=== PATIENT | male | born 1965 | race African-American/Black ===

== ENCOUNTER 2019-10-20 12:45 | Inpatient (IN) | payer OTHER ==
--- NOTE | 2019-10-20 13:01 | ED ---
General Adult HPI - General Chief complaint: Seizure Stated complaint: Syncope Time Seen by Provider: 10/20/19 12:52 Source: EMS Mode of arrival: EMS Limitations: no limitations - History of Present Illness Initial comments: Dictation was produced using [employer] dictation software. please excuse any grammatical, word or spelling errors. This patient was cared for during a federal and state declared state of emergency secondary to Covid 19 Chief Complaint: 54-year-old malepast medical history presents with seizure-like activity. History of Present Illness: 54-year-old male with no significant past medical history presents via EMS for seizure. Patient works for [employer]. He was at work for approximate 4 hours went the syncopized and then began showing seizure-like activity. He was postictal for approximate 5 minutes. Patient does not recall any of the events that transpired. States last seen he remembered was working on the floor. Patient has no history of seizure. Denies any medical problems. He's been feeling well otherwise. Currently has no complaints. States that he is nervous because he is in the emergency room. Patient does have 1 or 2 beers sporadically. He has no history of EtOH withdrawal. The ROS documented in this emergency department record has been reviewed and confirmed by me. Those systems with pertinent positive or negative responses have been documented in the HPI. All other systems are other negative and/or noncontributory. PHYSICAL EXAM: General Impression: Alert and oriented x3, not in acute distress HEENT: Normocephalic atraumatic, extra-ocular movements intact, pupils equal and reactive to light bilaterally, mucous membranes moist. Cardiovascular: Heart regular rate and rhythm Chest: Able to complete full sentences, no retractions, no tachypnea Abdomen: abdomen soft, non-tender, non-distended, no organomegaly Musculoskeletal: Pulses present and equal in all extremities, no peripheral edema Motor: no focal deficits noted Neurological: CN II-XII grossly intact, no focal motor or sensory deficits noted Skin: Intact with no visualized rashes Psych: Normal affect and mood ED course: 54-year-old male presents with clinical presentation concerning for new onset seizure. As upon arrival are within acceptable limits. Laboratory evaluation obtained. CBC is unremarkable. Metabolic panel shows sodium 129. He does have any gap acidosis likely secondary to seizure. Magnesium is 1.5. Considering that patient does not have a history of seizure patient be admitted for new onset seizure. At this point is not entirely clear what is causing patient's seizures. Does report drinking alcohol however he describes it's not significant amount. There is however some concern that perhaps his seizure could be from EtOH withdrawal. Patient may also have a his tory of epilepsy that was exacerbated with dehydration and electrolyte derangement. Patient states he's been admitted for hyponatremia in the past. Patient is agreeable for admission. Discussed patient case with neurology Dr. Lee. She reports that it is up to the patient's discretion whether to be admitted at our hospital considering that he is not able to get an EEG or MRI within 48 hours. Patient understands and would prefer to be admitted here as opposed to being transferred to a facility where these advanced studies can be performed in a timely fashion. This patient case with Dr. Aquino was went except patient's care. EKG interpretation: Ventricular rate 90, TX interval 164, QRS 86, QTC 457, normal sinus rhythm. No TX prolongation, no QTC prolongation, no ST or T-wave changes noted. Overall, this EKG is unremarkable - Related Data Home Medications Medication Instructions Recorded Confirmed Omeprazole 20 mg PO DAILY 10/20/19 10/20/19 Allergies Allergy/AdvReac Type Severity Reaction Status Date / Time No Known Allergies Allergy Verified 10/20/19 14:11 Review of Systems ROS Statement: Those systems with pertinent positive or pertinent negative responses have been documented in the HPI. ROS Other: All systems not noted in ROS Statement are negative. Past Medical History Past Medical History: No Reported History History of Any Multi-Drug Resistant Organisms: None Reported Past Surgical History: Hernia Repair Past Psychological History: No Psychological Hx Reported Smoking Status: Current every day smoker Past Alcohol Use History: Occasional Past Drug Use History: Marijuana General Exam Limitations: no limitations Course Vital Signs 10/20/19 10/20/19 12:45 14:16 Temperature 97.7 F Pulse Rate 96 80 Respiratory 18 16 Rate Blood Pressure 156/95 138/67 O2 Sat by Pulse 98 100 Oximetry Medical Decision Making - Lab Data Result diagrams: 10/20/19 12:55 10/20/19 12:55 Lab Results 10/20/19 10/20/19 Range/Units 12:55 12:55 WBC 5.6 (3.8-10.6) k/uL RBC 4.21 L (4.30-5.90) m/uL Hgb 13.5 (13.0-17.5) gm/dL Hct 41.4 (39.0-53.0) % MCV 98.4 (80.0-100.0) fL MCH 32.1 (25.0-35.0) pg MCHC 32.6 (31.0-37.0) g/dL RDW 14.9 (11.5-15.5) % Plt Count 157 (150-450) k/uL Neutrophils % 69 % Lymphocytes % 19 % Monocytes % 9 % Eosinophils % 0 % Basophils % 0 % Neutrophils # 3.9 (1.3-7.7) k/uL Lymphocytes # 1.1 (1.0-4.8) k/uL Monocytes # 0.5 (0-1.0) k/uL Eosinophils # 0.0 (0-0.7) k/uL Basophils # 0.0 (0-0.2) k/uL Sodium 129 L (137-145) mmol/L Potassium 3.6 (3.5-5.1) mmol/L Chloride 99 (98-107) mmol/L Carbon Dioxide 17 L (22-30) mmol/L Anion Gap 13 mmol/L BUN 3 L (9-20) mg/dL Creatinine 0.81 (0.66-1.25) mg/dL Est GFR (CKD-EPI)AfAm >90 (>60 ml/min/1.73 sqM) Est GFR (CKD-EPI)NonAf >90 (>60 ml/min/1.73 sqM) Glucose 113 H (74-99) mg/dL Calcium 8.5 (8.4-10.2) mg/dL Magnesium 1.5 L (1.6-2.3) mg/dL Disposition Clinical Impression: New onset seizure Disposition: ADMITTED IP TO THIS [facility] Condition: Fair Referrals: None,Stated [Primary Care Provider] - 1-2 days Decision Time: 14:31
[2019-10-20 13:05] LABS: Basophils % (A) 0 %; Eosinophils % (A) 0 %; HCT 41.4 % (39.0-53.0); HGB 13.5 gm/dL (13.0-17.5); Lymphocytes # (A) 1.1 k/uL (1.0-4.8); Lymphocytes % (A) 19 %; MCH 32.1 pg (25.0-35.0); MCHC 32.6 g/dL (31.0-37.0); MCV 98.4 fL (80.0-100.0); Mean Platelet Volume 7.6; Monocytes # (A) 0.5 k/uL (0-1.0); Monocytes % (A) 9 %; Neutrophils # (A) 3.9 k/uL (1.3-7.7); Neutrophils % (A) 69 %; Platelet Count 157 k/uL (150-450); RBC 4.21 m/uL (4.30-5.90); RDW 14.9 % (11.5-15.5); WBC 5.6 k/uL (3.8-10.6)
[2019-10-20 13:13] LABS: African American GFR (CKD) >90 (>60 ml/min/1.73 sqM); Anion Gap 13 mmol/L; Blood Urea Nitrogen 3 mg/dL (9-20); Calcium 8.5 mg/dL (8.4-10.2); Carbon Dioxide 17 mmol/L (22-30); Chloride 99 mmol/L (98-107); Glucose 113 mg/dL (74-99); Magnesium 1.5 mg/dL (1.6-2.3); Non-African American GFR(CKD) >90 (>60 ml/min/1.73 sqM); Potassium 3.6 mmol/L (3.5-5.1); Sodium 129 mmol/L (137-145)
--- NOTE | 2019-10-20 13:47 | CT ---
EXAMINATION TYPE: CT brain ese díaz con DATE OF EXAM: 10/20/2019 COMPARISON: NONE HISTORY: syncope CT DLP: 1262.7 mGycm Automated exposure control for dose reduction was used. TECHNIQUE: CT scan of the head and cervical spine are performed without contrast. FINDINGS: BRAIN: Structures are midline. There is no evidence of hydrocephalus. 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 No other focal lesion, mass effect or midline shift is seen. I do not see evidence of intracranial blood. Visualized portions of the paranasal sinuses and mastoids are clear. The bony calvarium is intact. IMPRESSION: 1. NO ACUTE INTRACRANIAL ABNORMALITY. 2. TINY LACUNE IN THE INTERNAL CAPSULE ON THE RIGHT. THIS IS NOT ACUTE FINDING. CERVICAL SPINE: There is diffuse emphysematous changes within the lungs. There are bullous changes in the right upper lobe. There is fullness in the pharyngeal soft tissues on the right with some calcification. This may repre sent a wandering carotid artery. Direct visualization would BE suggested. Prevertebral soft tissues a re otherwise unremarkable. There is a mild reversal of the normal cervical lordosis. Alignment is maintained. Atlantoaxial relat ionships are normal. There is severe degenerative disease and hypertrophic spondylosis at C5-6 and C6 -7. There is uncovertebral joint disease present at these levels. The facets are reasonably well-maintained. There is bilateral intervertebral foraminal narrowing, worse on the right than the left at C5-6 and b ilateral intervertebral foraminal narrowing at C6-7. No definite protrusion is seen. No fractures are seen. IMPRESSION: 1. NO ACUTE OSSEOUS LESION. 2. FAIRLY SEVERE DEGENERATIVE CHANGE WITH MULTILEVEL INTERVERTEBRAL FORAMINAL NARROWING.
[2019-10-20] MEDS ORDERED: SODIUM CHLORIDE 0.9% 1,000 ML IV STA (13:50)
[2019-10-20] MEDS: MAGNESIUM SULFATE-D5W PMX 1 GM in DEXTROSE/WATER 1 100ML.BAG IVPB SCH ×2 (14:09→16:21)
[2019-10-20] MEDS ORDERED: LORazepam 2 MG/ML INJ IV PRN ×4 (14:18)
[2019-10-20] MEDS ORDERED: THIAMINE 100 MG/ML 2 ML VIAL IM STA (14:18)
[2019-10-20] MEDS ORDERED: NALOXONE 0.4 MG/ML 1 ML VIAL IV PRN (14:19)
[2019-10-20] MEDS ORDERED: ACETAMINOPHEN TAB 325 MG TAB PO PRN (14:19)
[2019-10-20] MEDS ORDERED: TEMAZEPAM 15 MG CAP PO PRN (15:29)
[2019-10-20] MEDS ORDERED: Potassium Replacement Protocol 1 EACH MISC MISCELLANE PRN (15:29)
[2019-10-20] MEDS ORDERED: Magnesium Replacement Protocol 1 EACH MISC MISCELLANE PRN (15:29)
[2019-10-20] MEDS: HYDROcodone/APAP 5-325MG 1 EACH TAB PO PRN ×2 (16:22→21:41)
[2019-10-20] MEDS ORDERED: POTASSIUM CHLORIDE ER 20 MEQ TAB.ER PO SCH (17:00)
[2019-10-20] MEDS: THIAMINE 100 MG TAB PO SCH (17:49)
[2019-10-20] MEDS: SODIUM CHLORIDE 0.9% 1,000 ML IV SCH (18:18)
[2019-10-20] MEDS: HEPARIN SODIUM,PORCINE 5,000 UNIT/ML 1 ML VIAL SQ SCH (19:23)
--- NOTE | 2019-10-20 20:22 | HP ---
HISTORY AND PHYSICAL DATE OF SERVICE: 10/20/2019. CHIEF COMPLAINT: Seizure disorder. HISTORY OF PRESENT ILLNESS: This 54-year-old gentleman with past medical history of hernia repair, history of nicotine, history of THC being followed by no primary physician in the outpatient setting, apparently living in [place]. 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 The patient was at work at four hours and subsequently the patient had syncope and seizure-like activity, which lasted about 5 minutes and the patient was postictal and the patient is slightly drowsy and admitted for evaluation and treatment. There is no history of any headache. No history of any weakness. Patient apparently reports some weight loss at this time. The patient takes about 2 drinks of alcohol per day. PAST MEDICAL HISTORY: History of hernia, history of nicotine dependency, history of THC. MEDICATIONS: Prior to admission, omeprazole 20 mg p.o. daily. ALLERGIES: None. FAMILY HISTORY: No history of heart attack or strokes in the family. SOCIAL HISTORY: History of alcohol as mentioned, history of smoking, history of THC. REVIEW OF SYSTEMS: ENT No history of diminished hearing or vision. CARDIOVASCULAR No angina or palpitations. RESPIRATORY No cough, no hemoptysis. GI No nausea, vomiting, or diarrhea. No dysuria. NERVOUS As mentioned earlier. ALLERGY/IMMUNOLOGY No asthma or hayfever. MUSCULOSKELETAL As mentioned earlier. HEMATOLOGY/ONCOLOGY Negative. ENDOCRINE No history of diabetes or hypothyroidism. CONSTITUTIONAL As mentioned earlier. PSYCHIATRY As mentioned earlier. PHYSICAL EXAM: Patient is alert, oriented x3. Pulse is 96, blood pressure 156/95, respiration 18, temp 97.7, pulse ox 98% on room air. HEENT: Conjunctivae normal. Oral mucosa moist. NECK: No jugular venous distention. No lymph node enlargement. CARDIOVASCULAR: S1, S2. RESPIRATORY: Diminished breath sounds at the bases. No rhonchi, no crackles. ABDOMEN: Soft, nontender. No mass palpable. LEGS: No edema, no swelling. NERVOUS SYSTEM: Diffusely weak. LAB STUDIES: At this time shows WBC 5.6, hemoglobin 13.5, sodium 129, potassium 3.6, CO2 17, glucose 113, magnesium 1.5. Alcohol less than 10. Coronavirus is negative. ASSESSMENT: 1. New onset acute generalized tonic-clonic seizure disorder for evaluation. 2. Hyponatremia. 3. Hypomagnesemia. 4. Increased random blood sugar. 5. History of hiatal hernia repair. 6. History of nicotine dependence. 7. History of THC. RECOMMENDATIONS AND DISCUSSION: In this 54-year-old gentleman who presented with multiple complex medical issues, we will monitor the patient closely. Continue current neuro checks. Otherwise, neurology evaluation, complete neurovascular workup. I will supplement multivitamins at this time. There is no history of any significant alcohol intake but we will continue to monitor for any withdrawal symptoms or DTs. Once again, the prognosis is guarded because of multiple complex medical issues. Further recommendations to follow. See orders for further details. Symptomatic treatment also will be provided. MMODL / IJN: [id number] /
--- NOTE | 2019-10-20 23:02 | CT ---
EXAMINATION TYPE: CT angio head neck DATE OF EXAM: 10/20/2019 COMPARISON: None HISTORY: New onset seizure, abnormal CT cspine. CT DLP: 218.3 mGycm Automated exposure control for dose reduction was used. CONTRAST: Performed with IV Contrast, patient injected with 65 mL of Isovue 370. There are 3-D post processed images. There is normal branching pattern of the great vessels on the aortic arch. There is bilateral arteria l flow in the subclavian arteries. There is arterial flow in the common internal and external carotid arteries bilaterally. There is arterial flow in both vertebral arteries. There is arterial flow in t he vertebrobasilar artery system. There is wide patency of the carotid artery bifurcations. There is some calcified plaque at the posterior wall of the left carotid artery bifurcation but no significant luminal narrowing. There is no evidence of carotid or vertebral artery aneurysm or dissection. There is arterial flow in the anterior middle and posterior cerebral arteries. There is no evidence o f intracranial arterial stenosis. There is normal contrast opacification of the venous sinuses. There is no mass effect. There is no sign of intracranial aneurysm or neovascularity. IMPRESSION: Negative CT angiogram of the neck. Negative CT angiogram of the brain.
[2019-10-21] MEDS: SODIUM CHLORIDE 0.9% 1,000 ML IV SCH ×3 (02:32→19:58)
[2019-10-21] MEDS: HYDROcodone/APAP 5-325MG 1 EACH TAB PO PRN ×4 (03:46→22:48)
[2019-10-21 07:13] LABS: Basophils % (A) 1 %; Eosinophils % (A) 1 %; HCT 37.4 % (39.0-53.0); HGB 11.9 gm/dL (13.0-17.5); Lymphocytes # (A) 1.4 k/uL (1.0-4.8); Lymphocytes % (A) 33 %; MCH 31.8 pg (25.0-35.0); MCHC 31.9 g/dL (31.0-37.0); MCV 99.6 fL (80.0-100.0); Macrocytosis Slight; Mean Platelet Volume 7.9; Monocytes # (A) 0.4 k/uL (0-1.0); Monocytes % (A) 10 %; Neutrophils # (A) 2.3 k/uL (1.3-7.7); Neutrophils % (A) 55 %; Platelet Count 132 k/uL (150-450); RBC 3.75 m/uL (4.30-5.90); WBC 4.3 k/uL (3.8-10.6)
[2019-10-21 07:23] LABS: African American GFR (CKD) >90 (>60 ml/min/1.73 sqM); Anion Gap 3 mmol/L; Blood Urea Nitrogen 3 mg/dL (9-20); Calcium 7.9 mg/dL (8.4-10.2); Carbon Dioxide 25 mmol/L (22-30); Chloride 101 mmol/L (98-107); Creatine Kinase 892 U/L (55-170); Glucose 118 mg/dL (74-99); Magnesium 1.8 mg/dL (1.6-2.3); Non-African American GFR(CKD) >90 (>60 ml/min/1.73 sqM); Potassium 3.3 mmol/L (3.5-5.1); Sodium 129 mmol/L (137-145)
[2019-10-21] MEDS ORDERED: PANTOPRAZOLE 40 MG TABLET PO SCH (07:30)
[2019-10-21] MEDS: THIAMINE 100 MG TAB PO SCH ×2 (08:13→16:48)
[2019-10-21] MEDS: POTASSIUM CHLORIDE ER 20 MEQ TAB.ER PO SCH ×2 (08:13→09:55)
[2019-10-21] MEDS: MAGNESIUM SULFATE-D5W PMX 1 GM in DEXTROSE/WATER 1 100ML.BAG IVPB SCH ×2 (08:13→09:56)
[2019-10-21] MEDS: HEPARIN SODIUM,PORCINE 5,000 UNIT/ML 1 ML VIAL SQ SCH ×2 (08:14→20:22)
[2019-10-21] MEDS ORDERED: NICOTINE 14MG/24HR PATCH TRANSDERM SCH (09:00)
--- NOTE | 2019-10-21 11:55 | EEG ---
ELECTROENCEPHALOGRAM REPORT DATE OF SERVICE: 10/21/2019 HISTORY: This is an inpatient EEG performed on a 54-year-old male who presented to the emergency room with seizure like activity. He apparently had been at work ([employer]) and had a syncopal event followed with seizure-like activity that was witnessed. He was reported to be postictal for about 5 minutes. He has no recall of the that. He has no history of prior seizures. He has no known medical problems or known stroke risk factors. A cervical CT of the spine was performed showing a tiny lacune in the right internal capsule. The C-spine showed emphysema in the lungs, primarily right upper lung. There is a wandering carotid artery area of fullness in the pharyngeal tissue. Severe degenerative changes with multilevel interval foraminal narrowing. CURRENT MEDICATION: Keppra. TECHNICAL REPORT: This is an inpatient EEG performed on the [employer] EEG monitor with electrodes placed according to the International 10-20 system and a single EKG channel. Simultaneous video EEG monitoring was performed. This EEG was reviewed in both longitudinal bipolar, common average referential and transverse montages. Photic stimulation was performed. Hyperventilation was not performed. The recording begins with the patient in wakefulness. The background is of low voltage with a posterior dominant rhythm between 8 to maximum 13 hertz. The posterior dominant rhythm attenuates with eye opening. Low amplitude beta activity is most prominent over the anterior and central head regions. Intermittent muscle movement artifact contaminate the tracing. Photic stimulation was performed at various flash frequencies and failed to elicit a consistent driving response. Sleep was not achieved during this study. IMPRESSION: This is a normal wake only EEG study. No epileptiform activities were noted. No abnormal slowing noted. No abnormalities noted during photic stimulation. No abnormalities were noted in the single EKG channel. CLINICAL CORRELATION: A wake only EEG does not preclude an underlying seizure tendency. Thus, further clinical correlation is needed. If clinically indicated, serial EEGs are recommended and/or if available a long-term outpatient ambulatory EEG could provide additional information. MMODL / IJN: [id number] / MTDD
[2019-10-21] MEDS ORDERED: FOLIC ACID 1 MG TAB PO SCH (12:00)
[2019-10-21] MEDS ORDERED: MULTIVITAMINS, THERA 1 EACH TAB PO SCH (12:00)
[2019-10-21] MEDS ORDERED: IOPAMIDOL CONTRAST (ORAL USE) VIAL PO PRN (12:42)
--- NOTE | 2019-10-21 13:06 | P.CNNES ---
History of Present Illness Consult date: 10/21/19 Reason for Consult: New onset seizure History of Present Illness: Is a new neurology consult requested for further advice and recommendations for a 54-year-old gentleman who presented to the emergency room with seizure-like activity that was also witnessed by EMS. The history I obtained was primarily through his employer. The patient had minimal recollection of the event. 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 He is exposed to many chemicals but does wear an and 95 mask routinely. His employer reports that he was working in an area with him and asked him several times to handle metallic. He appeared rather distracted and this was approximately 11 AM. After the sixth time of asking him for A TOWEL,l without any response he walked over to grab the towel went into another room and then came back into the room 2-3 minutes later. As he walked by him he suddenly heard him cry out a yell, he fell to the ground and began going into generalized tonic-clonic seizure associated with dystonic posturing. The description his employer gave was decorticated posturing. He reports he placed a towel under his head his mouth was foaming, his fists were tight pointing to his head near his neck. He immediately activated 911 and as he reapproached him he saw that he was not breathing and he began CPR. He reports he estimates he may have not been breathing for at least a minute before CPR was started. He describes that after starting CPR he began to open his eyes but was nonresponsive. He was discolored around the lips and face bluish purplish color. He did not check for a pulse. By the time the EMS arrived he was disoriented and was described with post ictal sleepiness and fatigue. There is no report of any bowel or bladder incontinence. Since the patient's admission he has been stable he has been receiving Keppra IV 500 mg every 12. He is undergone an EEG which was a normal awake only study. A cervical CT of the spine was obtained which showed a tiny lacunae in the right internal capsule. In addition images were able to capture emphysematous changes in his long primarily in the right upper lobe. Also the description of a "wondering carotid artery" noted as fullness in the. Pharyngeal tissue was observed. Recommendation by radiology was to have direct visualization of this. Also severe degenerative multilevel interval foraminal narrowing was noted. Pertinent labs on admission include a decreased sodium of 129 BUN decreased 3 and magnesium decreased 1.5 Past medical history: The patient denies having any diabetes, hypertension or other stroke risk factors. He does admit to alcohol dependence. He drinks on average 4-5 cans of beer a day 4 out of 7 days a week. He reports he had significant weight loss over the past year. He admits to being a smoker. His nutritional intake is very low on poor. This was a factor that his employer also brought up after not having seen him for a month. He reported that he looked very ill and emaciated. Past Medical History Past Medical History: No Reported History Additional Past Medical History / Comment(s): hyponatremia History of Any Multi-Drug Resistant Organisms: None Reported Past Surgical History: Hernia Repair Additional Past Surgical History / Comment(s): bilateral inguinal hernia, hemorrhoidectomy Past Anesthesia/Blood Transfusion Reactions: No Reported Reaction Past Psychological History: No Psychological Hx Reported Smoking Status: Current every day smoker Past Alcohol Use History: Occasional Additional Past Alcohol Use History / Comment(s): last drink wednesday 10/18 Past Drug Use History: Marijuana Additional Drug Use History / Comment(s): occasional marijuana use per pt - Past Family History Mother Family Medical History: No Reported History Father Family Medical History: Cancer Additional Family Medical History / Comment(s): unknown what type of CA Medications and Allergies Home Medications Medication Instructions Recorded Confirmed Type RX: Omeprazole 20 mg PO DAILY 10/20/19 10/20/19 History Allergies Allergy/AdvReac Type Severity Reaction Status Date / Time No Known Allergies Allergy Verified 10/20/19 14:11 Physical Examination - Vital Signs Vital Signs: Vital Signs Temp Pulse Pulse Resp BP BP Pulse Ox 10/21/19 11:53 98.3 F 81 17 168/89 97 10/21/19 05:07 98.7 F 68 20 129/72 98 10/20/19 19:55 99.0 F 89 12 134/74 97 10/20/19 15:00 98.8 F 81 17 189/98 99 10/20/19 14:16 80 16 138/67 100 Intake and Output 10/20/19 10/21/19 10/21/19 22:59 06:59 14:59 Intake Total 800 Balance 800 Intake: IV 800 Sodium Chloride 0.9% 1, 800 000 ml @ 100 mls/hr IV . Q10H [facility] Rx#:[id number] Other: Voiding Method Toilet Toilet # Voids 2 5 Weight 61.36 kg Patient examined chart reviewed. HEENT: Clear sclera clear oropharynx head atraumatic. Neck is supple. Appearance: Cachectic appearance severe weight loss. Pulses radial pedal pulses equal and symmetric. Extremities: No clubbing of the digits noted severe distal wasting of the lower extremity muscles and intrinsic hand muscles. Neurological exam Mental status awake alert hearing speech is fluent. Affect appropriate. Good good historian. Next a pupils 2 mm equally reactive to light and accommodation. Bilateral cataracts noted. Cranial nerves: Cranial nerves III through XII are intact. Motor examination: Moves all 4 extremities equally. Pronator drift negative. Strength is 5 out of 5 throughout. No muscle fasciculations or tremor noted. Next Deep tendon reflexes +1 over biceps triceps brachioradialis. +3 hyperreflexic without crossed adduction at the knees bilaterally. Minimum ankle jerks elicited. Plantar responses mute bilaterally. No ankle clonus elicited. Sensory examination grossly intact to light touch throughout. Coordination testing: Intact finger to nose testing with eyes open and eyes closed. Gait examination deferred Results - Laboratory Findings CBC and BMP: 10/21/19 06:00 10/21/19 06:00 Abnormal Lab Findings: Abnormal Labs 10/20/19 10/20/19 10/21/19 12:55 12:55 06:00 RBC 4.21 L 3.75 L Hgb 11.9 L Hct 37.4 L Plt Count 132 L Sodium 129 L Potassium Carbon Dioxide 17 L BUN 3 L Creatinine Glucose 113 H Calcium Magnesium 1.5 L Creatine Kinase 10/21/19 06:00 RBC Hgb Hct Plt Count Sodium 129 L Potassium 3.3 L Carbon Dioxide BUN 3 L Creatinine 0.62 L Glucose 118 H Calcium 7.9 L Magnesium Creatine Kinase 892 H - Diagnostic Findings EKG: report reviewed Chest x-ray: report reviewed Assessment and Plan Assessment: Assessment: This is a 54-year-old male who has chronic alcohol dependence and extreme weight loss over the past year possibly 40-50 pounds. Chronic nicotine abuse. Patient presented to the emergency room after a generalized tonic-clonic seizure with postictal fatigue and sleep. The witness at the scene does describe a respiratory arrest with the patient was reported not breathing and was provided CPR. Based on this patient's history of alcohol usage there is a high probability this could have been triggered by alcohol withdrawal over 24 hours. However in context of the whole picture, with this extreme weight loss chronic nicotine abuse he does appear to be suspicious for possible malignancy. The neurological exam today was nonfocal with the exception of hyperreflexic patellar reflexes which coincides with the description of the severe degenerative multilevel foraminal narrowing in the neck. The C-spine is also concerning for emphysematous changes in the lung right upper lobe. There is concern for this fullness noted on the imaging studies well in the pharyngeal tissue. I would recommend we have this patient be followed by neurology as an outpatient. He should be maintained on a low-dose of a broad-spectrum anticonvulsant medicaion while he awaits further evaluation with a neurologist. Due to his history of severe weight loss nicotine abuse I would strongly recommend evaluation for malignancy and paraneoplastic process. This patient has been counseled on [place] laws for seizures and driving. Plan: Recommendations: 1. CT angiogram head and neck with contrast to better visualize the description of the "wandering carotid artery fullness in the pharyngeal tissue" 2. 2-D cardiac echo to further evaluate ejection fraction and cardiac status. This is based on the fact that the witness observe the patient arrested and provided CPR. 3. Duplex carotid ultrasound . CT of the chest abdomen and pelvis with contrast to look for possible malignancy 5. MRI of the brain on Tuesday to look for any intracranial pathology such as a structural mass lesion. 6. Would recommend this patient to be considered for long-term monitoring in the event he had an arrhythmia related to this syncopal/seizure episode that was associated with respiratory arrest. 7. This patient requires coordination of care for follow-up with a neurologist as an outpatient. The patient should continue on Keppra 500 mg twice daily as he awaits establishing care with a neurologist. 8. Nursing care: Maintain current protocol for seizure precautions and aspiration precautions. 9. 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 10. Consider implementing ciwa protocol 11. Labs: Thiamine level. B6 level. TSH and free T4. Sed rate and CRP. 12. Nutrition consult. This patient's prognosis remains guarded further recommendations will be made as this case evolves. Thank you for this consultation
--- NOTE | 2019-10-21 13:34 | US ---
EXAMINATION TYPE: US carotid duplex BILAT DATE OF EXAM: 10/21/2019 COMPARISON: CLINICAL HISTORY: SYNCOPE RESP ARREST. Patient states passing out at work yesterday. EXAM MEASUREMENTS: RIGHT: Peak Systolic Velocity (PSV) cm/sec ----- Right CCA: 88.9 ----- Right ICA: 79.0 ----- Right ECA: 80.1 ICA/CCA ratio: 0.9 RIGHT: End Diastole cm/sec ----- Right CCA: 18.6 ----- Right ICA: 19.7 ----- Right ECA: 15.3 LEFT: Peak Systolic Velocity (PSV) cm/sec ----- Left CCA: 66.8 ----- Left ICA: 83.6 ----- Left ECA: 66.0 ICA/CCA ratio: 1.3 LEFT: End Diastole cm/sec ----- Left CCA: 18.0 ----- Left ICA: 28.0 ----- Left ECA: 7.5 VERTEBRALS (direction of flow): Right Vertebral: Antegrade Left Vertebral: Antegrade Rhythm: Normal Bilateral wall thickening. No elevated velocities or significant stenosis. Plaque visualized in eden ateral bulbs. IMPRESSION: I DO NOT SEE EVIDENCE OF A HEMODYNAMICALLY SIGNIFICANT STENOSIS IN EITHER CAROTID SYSTEM. Criteria for Assigning % of Stenosis / Diameter reduction (Estimation based on the indirect measurements of the internal carotid artery velocities (ICA PSV). 1. Normal (no stenosis)=ICA PSV < 125 cm/s: ratio < 2.0: ICA EDV<40 cm/s. 2. Less than 50% stenosis=ICA PSV < 125 cm/s: ratio < 2.0: ICA EDV<40 cm/s. 3. 50 to 69% stenosis=ICA PSV of 125 to 230 cm/s: ration 2.0 ? 4.0: ICA EDV 40-100 cm/s. 4. Greater than 70% stenosis to near occlusion= ICA PSV > 230 cm/s: ratio > 4.0: ICA EDV > 100 cm/s. 5. Near occlusion= ICA PSV velocities may be low or undetectable: variable ratio and ICA EDV. 6. Total occlusion=unable to detect flow.
[2019-10-21 13:36] VITALS: BMI 19.4
[2019-10-21 14:45] LABS: C Reactive Protein 11.2 mg/L (<10.0); Creatine Kinase 831 U/L (55-170)
[2019-10-21] MEDS: levETIRAcetam 500 MG TAB PO SCH ×2 (14:55→20:22)
--- NOTE | 2019-10-21 16:30 | XR ---
EXAMINATION TYPE: XR chest 1V portable DATE OF EXAM: 10/21/2019 COMPARISON: NONE HISTORY: Short of breath TECHNIQUE: FINDINGS: Heart and mediastinum are normal. There is pulmonary emphysema. This is more noticeable in the right upper lobe. There are no hilar masses. There is no pleural effusion. IMPRESSION: COPD. No acute lung disease. Normal heart.
--- NOTE | 2019-10-21 17:37 | PN ---
PROGRESS NOTE DATE OF SERVICE: 10/21/2019 This 54-year-old gentleman who was admitted with new onset acute generalized tonic clonic seizures is being closely monitored. Alcohol intoxication is suspected. Neurovascular workup underway. Neurology evaluation also in progress. A carotid ultrasound showed no evidence of hemodynamically significant stenosis and possible alcohol withdrawal was suspected. Patient closely monitored at this time. PAST MEDICAL HISTORY: Reviewed. REVIEW OF SYSTEMS: Cardiovascular system: No angina or palpitations. RESPIRATORY: As mentioned earlier. GI: As mentioned earlier. : No dysuria. CENTRAL NERVOUS SYSTEM: As mentioned earlier. CURRENT MEDICATIONS: Reviewed and include: 1. Tylenol p.r.n. 2. Rudyard 5 mg q.6h p.r.n. 3. Folic acid 1 mg. 4. Heparin 5000 subcu. 5. Keppra 500 mg p.o. b.i.d. 6. Ativan. 7. Magnesium replacement. 8. Habitrol 14. 9. Protonix. 10.Restoril. 11.Vitamin B1. PHYSICAL EXAMINATION: Alert and oriented x3. Pulse is 68. Blood pressure 197/72. Respiration 20, temperature 98.7, pulse ox 98% on room air. HEENT: Conjunctivae normal. NECK: No JVD. CARDIOVASCULAR: S1, S2 muffled. RESPIRATORY: Breath sounds diminished in the bases. No rhonchi. No crackles. ABDOMEN: Soft, nontender. LEGS are no edema. No swelling. NERVOUS SYSTEM: No focal deficits. LAB STUDIES: WBC ntd, hemoglobin 11.9. Sodium 129. Garrido virus is negative. Alcohol less than 10. Creatinine kinase 892. ASSESSMENT: 1. Acute new onset generalized tonic-clonic seizures, possibly alcohol withdrawal seizures. 2. Hyponatremia. 3. Hypomagnesemia. 4. Mild rhabdomyolysis. 5. Increased random blood sugar. 6. History of hiatal hernia repair. 7. History of nicotine dependence. 8. History of THC. 9. Hypokalemia mild. 10.Hypomagnesemia. RECOMMENDATIONS AND DISCUSSION: Recommend to continue current medications, management and symptomatic treatment. Otherwise, neurology following the patient closely. The awake EEG does not preclude underlying seizure tendency. Otherwise, we will continue to monitor. Guarded prognosis because of multiple complex medical issues. Further recommendations to follow. We will closely follow with multiple consultants. Social Work, Case Management team to evaluate the outpatient and as well as arrange for any followup regarding especially with alcohol withdrawal syndromes and further recommendations to follow. The patient has overt signs of alcohol withdrawal. Recommend CIWA protocol. Further recommendations to follow. MMODL / IJN: [id number] / MTDD
[2019-10-22] MEDS ORDERED: HALOPERIDOL LACTATE 5 MG/ML 1 ML VIAL IM PRN (00:43)
[2019-10-22] MEDS ORDERED: LORazepam 2 MG/ML INJ IV PRN (00:43)
[2019-10-22] MEDS: SODIUM CHLORIDE 0.9% 1,000 ML IV SCH (04:25)
[2019-10-22 05:06] VITALS: BP 130/91; PULSE 78; RESP 18; TEMP 98.1
[2019-10-22 06:59] LABS: Basophils % (A) 0 %; Eosinophils % (A) 1 %; HCT 41.1 % (39.0-53.0); HGB 13.1 gm/dL (13.0-17.5); Lymphocytes # (A) 1.6 k/uL (1.0-4.8); Lymphocytes % (A) 36 %; MCH 32.3 pg (25.0-35.0); MCHC 31.9 g/dL (31.0-37.0); MCV 101.2 fL (80.0-100.0); Macrocytosis Slight; Monocytes # (A) 0.4 k/uL (0-1.0); Monocytes % (A) 10 %; Neutrophils # (A) 2.2 k/uL (1.3-7.7); Neutrophils % (A) 51 %; Platelet Count 166 k/uL (150-450); RBC 4.06 m/uL (4.30-5.90); WBC 4.4 k/uL (3.8-10.6)
[2019-10-22 07:12] LABS: African American GFR (CKD) >90 (>60 ml/min/1.73 sqM); Anion Gap 5 mmol/L; Blood Urea Nitrogen 2 mg/dL (9-20); Calcium 8.7 mg/dL (8.4-10.2); Carbon Dioxide 27 mmol/L (22-30); Chloride 101 mmol/L (98-107); Glucose 94 mg/dL (74-99); Magnesium 1.8 mg/dL (1.6-2.3); Non-African American GFR(CKD) >90 (>60 ml/min/1.73 sqM); Potassium 4.5 mmol/L (3.5-5.1); Sodium 133 mmol/L (137-145)
[2019-10-22] MEDS ORDERED: IOPAMIDOL CONTRAST (ORAL USE) VIAL PO PRN (08:00)
[2019-10-22 11:02] LABS: Ferritin 225.8 ng/mL (22.0-322.0)
[2019-10-22 11:18] LABS: Folate, Serum >24.0 ng/mL
--- NOTE | 2019-10-22 23:23 | DS ---
DISCHARGE SUMMARY DATE OF SERVICE: 10/22/2019 FINAL DIAGNOSES: 1. Acute new onset generalized tonic-clonic seizure, possibly alcohol withdrawal seizures. 2. Hyponatremia. 3. Hypomagnesemia. 4. Mild rhabdomyolysis. 5. Increased random blood sugar. 6. History of hiatal hernia repair. 7. History of nicotine dependence. 8. History of THC. 9. Mild hypokalemia. DISCHARGE DISPOSITION: The patient left the hospital AGAINST MEDICAL ADVICE. HISTORY OF PRESENT ILLNESS: This 54-year-old gentleman with a past medical history of multiple medical problems was admitted with significant new onset generalized tonic-clonic seizure, treated symptomatically. Neurology saw the patient. The patient started on Keppra, but however the patient left the hospital AGAINST MEDICAL ADVICE. Please refer to staff notes and multiple consultants and progress notes for further details. Prognosis remained extremely guarded and the patient is not willing to stay. Please refer to all previous records for further details. MMODL / IJN: [id number] /
--- NOTE | 2019-10-25 14:09 | CDI ---
Documentation Clarification Form Date: 10/25/19 From: Daniella Montalvo CCS Phone: If you have a question about this query, please contact Alysha Crespo, Metal Fabricator Helper at [phone] between 8am and 5pm. Admit Date: 10/20/19 Discharge Date:10/22/19 Patient Name: Izaiah Chavez Visit Number: [id number] ATTENTION: The Clinical Documentation Specialists (CDI) and [facility] Coding Staff appreciate your assistance in clarifying documentation. Please respond to the clarification below the line at the bottom and electronically sign. The CDI & [facility] Coding staff will review the response and follow-up if needed. Please note: Queries are made part of the Legal Health Record. If you have any questions, please contact the author of this message via ITS. Dear Dr. Aquino, Patient has been described as emaciated, cachectic appearance, severe weight loss. Consult 10/20 documents: This is a 54-year-old male who has chronic alcohol dependence and extreme weight loss over the past year possibly 40-50 pounds. However in context of the whole picture, with this extreme weight loss chronic nicotine abuse he does appear to be suspicious for possible malignancy. Due to his history of severe weight loss nicotine abuse I would strongly recommend evaluation for malignancy and paraneoplastic process. History/Risk Factors: Alcoholism, Tobacco, Seizure, Dehydration Clinical Indicators: Cachectic, Severe weight loss, BMI 19.4 Patients weight is: 61.36 kg Patients height is: 5 ft 10 in Calculated BMI is: 19.4 Muscle wasting: severe distal wasting of the lower extremity muscles and intrinsic hand muscles Treatments: Enlive BID Dietary Consult: 10/21/19 In order to capture the severity of condition associated with patient BMI of 19.4, a clinical diagnosis needs to be documented by the physician. Please clarify: Cachexia Underweight Malnutrition Mild Moderate Severe Other Unable to determine Malnutrition Moderate MTDD
== END 2019-10-22 06:04 | disposition left against medical advice (07) | DRG 894 ==
LOC: EC 12:45 → 5NMEDONC 14:19
PROVIDERS: ADMIT Hospitalist; ATTEND Hospitalist
DX: F10.239 Alcohol dependence with withdrawal, unspecified (principal); E44.0 Moderate protein-calorie malnutrition; R64 Cachexia; E87.2 Acidosis; M62.82 Rhabdomyolysis; E87.1 Hypo-osmolality and hyponatremia; Z68.1 Body mass index [BMI] 19.9 or less, adult; Z11.59 Encounter for screening for other viral diseases; R56.9 Unspecified convulsions; E86.0 Dehydration; F17.200 Nicotine dependence, unspecified, uncomplicated; E83.42 Hypomagnesemia; E87.6 Hypokalemia; Y90.0 Blood alcohol level of less than 20 mg/100 ml; Z71.3 Dietary counseling and surveillance; Z98.890 Other specified postprocedural states; Z79.899 Other long term (current) drug therapy; Z87.09 Personal history of other diseases of the respiratory system; Z80.9 Family history of malignant neoplasm, unspecified
CPT/HCPCS: 36415; 70450; 70496; 70498; 71045; 72125; 80048; 80320; 82550; 82607; 82728; 82746; 83735; 83970; 84132; 84425; 84443; 84480; 85025; 85652; 86140; 87635; 93005; 93880; 95816; 96365; 99285